=== PATIENT | male | born 2000 ===

== ENCOUNTER 2022-04-02 20:47 | Emergency (ER) | payer SELFPAY ==
[2022-04-02] MEDS ORDERED: Bacitracin 1 PK ONE (22:09)
[2022-04-02] MEDS ORDERED: Lidocaine 1% w/Epinephrine 1:100K 20 ML VIAL ONE (22:09)
== END 2022-04-02 22:57 | disposition home or self-care (01) ==
LOC: CSHERS 20:47
DX: S01.111A Laceration without foreign body of right eyelid and periocular area, initial encounter (principal); W19.XXXA Unspecified fall, initial encounter
CPT/HCPCS: 12013